=== PATIENT | female | born 1955 | race Hispanic/Latino ===

== ENCOUNTER 2018-02-13 07:40 | Day surgery (SDC) | payer BC ==
[2018-02-02 09:50] VITALS: BMI 32.9
[2018-02-13] MEDS ORDERED: Propofol 10 mg/ml Inj (20 ML) ONE ×2 (08:47→09:24)
[2018-02-13] MEDS ORDERED: Sodium Chloride 0.9% 1,000 ML IV SCH (10:00)
[2018-02-13 10:10] VITALS: O2SAT 99
[2018-02-13 10:35] VITALS: BP 130/78; PULSE 62; RESP 16; TEMP 97.7
== END 2018-02-13 10:57 | disposition home or self-care (01) ==
LOC: ENDO 07:40
PROVIDERS: ATTEND Internal Medicine Gastroenterology
DX: Z12.11 Encounter for screening for malignant neoplasm of colon (principal); D12.3 Benign neoplasm of transverse colon; D12.4 Benign neoplasm of descending colon; D12.5 Benign neoplasm of sigmoid colon; K64.8 Other hemorrhoids; Q43.8 Other specified congenital malformations of intestine; Z86.010 Personal history of colon polyps; Z80.0 Family history of malignant neoplasm of digestive organs; K21.9 Gastro-esophageal reflux disease without esophagitis; E78.5 Hyperlipidemia, unspecified; J45.909 Unspecified asthma, uncomplicated; F95.2 Tourette's disorder; I10 Essential (primary) hypertension; M54.30 Sciatica, unspecified side; Z88.0 Allergy status to penicillin; Z88.2 Allergy status to sulfonamides
CPT/HCPCS: 45380; 45384; 88305; J2704; J7030